=== PATIENT | female | born 1965 | race Caucasian/White ===

== ENCOUNTER 2016-05-09 18:55 | Emergency (ER) | payer OTHER ==
--- NOTE | ~2016-05-09 | US140 ---
[facility] A Service of [facility] RADIOLOGY TEXT RESULTS PATIENT: MARTELL ROCK LOCATION: [facility] : 63 UNIT #: [id number] AGE: [address]: Ladarius Bhandari MD SEX: F ORDER DR: [id number] [facility] [address] [place], [place] [address] [id number] E MR#: [id number] Acc #: [id number] NAME: MARTELL ROCK : 1965 SEX: F STUDY DATE/TIME: 05/09/2016 19:07 UNIT: [facility] ROOM: STUDY DESCRIPTION: UE Veins Unilat or Ltd Stdy Attending Physician: Ladarius Bhandari M.D. Ordering Physician: Ed Doctor [id number] [facility] Primary Care Physician: [facility], [facility] MEDICAL IMAGING REPORT This report is preliminary unless electronic signature is present EXAM Color Doppler ultrasound examination of the right upper extremity HISTORY Right upper extremity pain for the past week. TECHNIQUE Ultrasound evaluation was performed with gay-scale, color-flow and Doppler spectral waveform analysis. FINDINGS All veins of the right upper extremity show good compressibility and good augmentation to flow with distal compression. There is no evidence of filling defect to suggest thrombosis. The Doppler signal is normal. IMPRESSION Normal examination. No evidence of DVT. Dictated by... Mike Champagne M.D. THIS IS AN ELECTRONICALLY VERIFIED REPORT Mike Champagne M.D. at 05/11/2016 11:02 AM ABELINO/astrid TD: 05/10/2016 11:19 JOB #: [id number] MEDICAL IMAGING REPORT Page 1 of 1 COPY
[~2016-05-09 18:55] MED LIST: ACCUPRIL40 MG PO; ACETAMINOPHEN PO; AGGRENOX1 CAP PO; ALB/IPRATROPIUM/1 E1 INH; ALBUTEROL MININEB NEB; ALBUTEROL17 GM INH; ALDACTONE25 MG PO; AMLODIPINE BESYL5 MG PO; ANTI-ITCH28 GM TOP; ASPIRIN81 M1 PO; ASPIRIN81 M2 PO; ATORVASTATIN CA10 MG PO; BACLOFEN10 MG PO; BUPROPION HCL150 M2 PO; CARDIZEM CD PO; CARDIZEM SR PO; CARDURA PO; CARTIA XT PO; CATAPRES-TTS-30.3 M1 PO; CATAPRES0.3 MG PO; CELEXA PO; CELEXA20 MG PO; CITALOPRAM HBR40 MG PO; COREG3.125 MG PO; COREG6.25 MG PO; DILTIAZEM 24HR240 M2 PO; DOXYCYCLINE HY100 M1 PO; DOXYCYCLINE HY100 M3 PO; DOXYCYCLINE PO; ELIMITE60 GM TOP; FERROUS GLUCON324 MG PO; FISH OIL 1,0001 CA2 PO; FUROSEMIDE40 MG PO; HUMIBID-LA600 MG PO; HYDRALAZINE HCL25 MG PO; LASIX PO; LIPITOR PO; LIPITOR20 MG PO; LISINOPRIL10 MG PO; LOPRESSOR PO; METOPROLOL TART25 MG PO; NO MEDICATIONS; NORVASC PO; PHENERGAN W/CO120 ML PO; PLAVIX PO; PREDNISONE10 MG PO; PROAIR HFA8.5 GM INH; TESSALON200 MG PO; TRIAMTERENE-HC1 EACH PO; VIBRAMYCIN100 M1 PO; ZITHROMAX PO
[2016-05-09] MEDS ORDERED: ATORVASTATIN CA10 MG PO (19:05)
[2016-05-09] MEDS ORDERED: BELBUCA150 MCG (19:07)
[2016-05-09] MEDS ORDERED: BREO ELLIPTA 11 EACH INH (19:08)
[2016-05-09] MEDS ORDERED: PULMICORT180 MCG/A1 INH (19:08)
[2016-05-09] MEDS ORDERED: LISINOPRIL10 MG PO (19:15)
[2016-05-09] MEDS ORDERED: CARVEDILOL6.25 MG PO (19:15)
[2016-05-09] MEDS ORDERED: LIORESAL10 MG PO (19:16)
[2016-05-09] MEDS ORDERED: ALDACTONE PO (19:16)
== END 2016-05-09 20:24 | disposition home or self-care (01) ==
LOC: CED 18:55
DX: M79.601 Pain in right arm (principal); J44.9 Chronic obstructive pulmonary disease, unspecified; I25.10 Atherosclerotic heart disease of native coronary artery without angina pectoris; I11.0 Hypertensive heart disease with heart failure; I50.9 Heart failure, unspecified; Z86.73 Personal history of transient ischemic attack (TIA), and cerebral infarction without residual deficits; F31.9 Bipolar disorder, unspecified; Z90.49 Acquired absence of other specified parts of digestive tract; F17.210 Nicotine dependence, cigarettes, uncomplicated
CPT/HCPCS: 93971; 99284